=== PATIENT | female | born 1950 | race Native Hawaiian/Other Pacific Islander ===

== ENCOUNTER 2021-11-23 10:48 | Outpatient (CLI) | payer OTHER | END 2021-11-23 18:49 | disposition home or self-care (01) | LOC: CT 10:48 | PROVIDERS: ATTEND Internal Medicine | DX: M25.552 Pain in left hip (principal); M25.551 Pain in right hip; M19.90 Unspecified osteoarthritis, unspecified site; M85.88 Other specified disorders of bone density and structure, other site; Z13.820 Encounter for screening for osteoporosis; M54.32 Sciatica, left side; Z95.0 Presence of cardiac pacemaker; E55.9 Vitamin D deficiency, unspecified ==

== ENCOUNTER 2022-01-03 10:51 | Outpatient (CLI) | payer OTHER | END 2022-01-03 18:56 | disposition home or self-care (01) | LOC: US 10:51 | PROVIDERS: ATTEND Nurse Practitioner Family | DX: R42 Dizziness and giddiness (principal); H53.8 Other visual disturbances ==

== ENCOUNTER 2022-02-20 10:40 | Outpatient (CLI) | payer OTHER | END 2022-02-20 20:22 | disposition home or self-care (01) | LOC: RAD 10:40 | PROVIDERS: ATTEND Internal Medicine | DX: M85.88 Other specified disorders of bone density and structure, other site (principal); Z13.820 Encounter for screening for osteoporosis; N95.8 Other specified menopausal and perimenopausal disorders ==

== ENCOUNTER 2022-10-23 09:17 | Outpatient (CLI) | payer OTHER | END 2022-10-23 19:31 | disposition home or self-care (01) | LOC: US 09:17 | PROVIDERS: ATTEND Internal Medicine | DX: R94.5 Abnormal results of liver function studies (principal) ==